=== PATIENT | female | born 1960 | race Caucasian/White ===

== ENCOUNTER → 2022-06-21 | Emergency (ER) | payer OTHER ==
[~2022-06-21] VITALS: Ht 157.5 cm; Wt 61.2 kg
[~2022-06-21] MED LIST: FENOFIBRATE160 MG; GLUCOVANCE 5/501 TA1; JARDIANCE25 MG PO; RAMIPRIL10 MG PO; ROSUVASTATIN CA10 MG PO; TRAZODONE HCL50 MG; XARELTO10 M1 PO; ZIAC 5-6.25 MG1 TAB
== END | disposition home or self-care (01) ==
LOC: ER 12:06
DX: B34.9 Viral infection, unspecified (principal); Z85.3 Personal history of malignant neoplasm of breast; Z86.39 Personal history of other endocrine, nutritional and metabolic disease; Z86.79 Personal history of other diseases of the circulatory system; Z20.822 Contact with and (suspected) exposure to COVID-19

== ENCOUNTER 2022-10-20 07:18 | Outpatient (CLI) | payer OTHER | END 2022-10-20 07:20 | disposition home or self-care (01) | LOC: NUCLEAR 07:18 | PROVIDERS: ATTEND Internal Medicine Cardiovascular Disease | DX: I25.10 Atherosclerotic heart disease of native coronary artery without angina pectoris (principal); I11.9 Hypertensive heart disease without heart failure; R07.9 Chest pain, unspecified ==

== ENCOUNTER 2022-11-14 07:20 | Outpatient (CLI) | payer OTHER | END 2022-11-14 07:25 | disposition home or self-care (01) | LOC: NUCLEAR 07:20 | PROVIDERS: ATTEND Internal Medicine Cardiovascular Disease | DX: R07.9 Chest pain, unspecified (principal); I10 Essential (primary) hypertension; E11.9 Type 2 diabetes mellitus without complications ==